=== PATIENT | female | born 2000 | race Caucasian/White ===

== ENCOUNTER → 2020-03-12 | Outpatient (CLI) | payer OTHER ==
--- NOTE | 2020-03-13 08:40 | EKG ---
[facility] [place] [address] ELECTROCARDIOGRAM REPORT Name: ABIMBOLA PIERRE [id number] Admission: 03/12/20 Attend Phys: Susan Magana MD Discharge: Date of : 89 Report #: [id number] THIS REPORT FOR: cc: Susan Magana MD, Ellen S. MD Lundgren,Efren Ayers MD [facility] ~ THIS REPORT FOR: //name// [facility] Test Date: 2020-03-12 Test Time: 15:38:58 Pat Name: ABIMBOLA PIERRE Department: Room: Gender: Managing Director [employer]: Martha CASAS : 2000 Requested By: Susan Magana Order Number: [id number] MD: Efren Al Measurements Intervals [place] Rate: 100 P: -11 GA: 136 QRS: 21 QRSD: 100 T: 18 QT: 341 QTc: 440 Interpretive Statements Sinus tachycardia Right ventricular conduction delay Normal tracing No previous ECG available for comparison Electronically Signed On 03-13-2020 8:38:16 CDT by Efren Al [email or web address] <ELECTRONICALLY SIGNED> By: Efren Al MD, [facility] 03/13/20 0838 1538 1538 Efren Al MD, [facility] /EPI
== END ==
LOC: CV 15:17
PROVIDERS: ATTEND Pediatrics
DX: R00.0 Tachycardia, unspecified (principal)

== ENCOUNTER → 2020-04-29 | Outpatient (CLI) | payer OTHER | LOC: SJCVCIMAG 07:53 | PROVIDERS: ATTEND Internal Medicine | DX: R00.0 Tachycardia, unspecified (principal) ==